=== PATIENT | male | born 1995 | race Caucasian/White ===

== ENCOUNTER 2017-04-19 20:26 | Emergency (ER) | payer OTHER | END 2017-04-19 21:48 | disposition home or self-care (01) | LOC: ER1 20:26 | DX: K64.4 Residual hemorrhoidal skin tags (principal); F17.210 Nicotine dependence, cigarettes, uncomplicated | CPT/HCPCS: 99282 ==

== ENCOUNTER 2020-11-23 09:17 | Emergency (ER) | payer OTHER ==
[2020-11-23] MEDS ORDERED: PERIDEX15 ML PO (09:57)
[2020-11-23] MEDS ORDERED: AUGMENTIN 875-1 EACH PO (09:57)
== END 2020-11-23 10:25 | disposition home or self-care (01) ==
LOC: ER1 09:17
DX: T40.7X1A Poisoning by cannabis (derivatives), accidental (unintentional), initial encounter (principal); R11.2 Nausea with vomiting, unspecified; F41.9 Anxiety disorder, unspecified; F17.210 Nicotine dependence, cigarettes, uncomplicated
CPT/HCPCS: 99283